=== PATIENT | female | born 1985 | race Caucasian/White ===

== ENCOUNTER 2020-07-11 12:29 | Outpatient (REF) | payer OTHER, SELFPAY ==
[2020-07-11 13:09] LABS: COVID-19 Test Negative (Negative)
== END 2020-07-11 12:30 | disposition home or self-care (01) ==
LOC: HO.EMPCOV 12:29
PROVIDERS: PCP Family Medicine; Visit Provider Internal Medicine
DX: Z20.828 Contact with and (suspected) exposure to other viral communicable diseases (principal)
CPT/HCPCS: 87635; C9803

== ENCOUNTER 2021-07-29 06:15 | Outpatient (REF) | payer OTHER, SELFPAY | END 2021-07-29 06:16 | disposition home or self-care (01) | LOC: HO.EMPCOV 06:15 | PROVIDERS: Visit Provider Internal Medicine | DX: Z20.822 Contact with and (suspected) exposure to COVID-19 (principal) | CPT/HCPCS: C9803; U0003; U0005 ==

== ENCOUNTER 2021-08-05 11:57 | Outpatient (REF) | payer OTHER, SELFPAY ==
[2021-08-05 12:55] LABS: Influenza A PCR NEGATIVE (Negative); Influenza B PCR NEGATIVE (Negative); Resp Syncy Virus RNA Qual PCR NEGATIVE (Negative); SARS COV2 PCR INHOUSE NEGATIVE (Negative)
== END 2021-08-05 11:58 | disposition home or self-care (01) ==
LOC: HO.LNP 11:57
PROVIDERS: Visit Provider Hospitalist
DX: Z20.822 Contact with and (suspected) exposure to COVID-19 (principal)
CPT/HCPCS: 0241U

== ENCOUNTER → 2022-05-22 11:48 | Outpatient (RCR) | payer OTHER, SELFPAY ==
[2020-06-14 07:20] LABS: COVID-19 Test Negative (Negative)
[2020-06-18 08:08] LABS: COVID-19 Test Negative (Negative); IDNOW Serial# 55D5AD1C
[2020-06-25 07:24] LABS: COVID-19 Test Negative (Negative); IDNOW Serial# 55D5AD1C
[2020-07-02 07:36] LABS: COVID-19 Test Negative (Negative)
[2020-07-19 09:58] LABS: SARS-COV-2 PCR UMBRL Not Detected
[2020-07-25 11:52] LABS: SARS-COV-2 PCR UMBRL Not Detected
[2020-08-01 08:13] LABS: SARS-COV-2 PCR UMBRL Not Detected
[2020-08-06 08:48] LABS: COVID-19 Test Negative (Negative); IDNOW Serial# 55D5AD1C
[2020-08-16 13:22] LABS: SARS-COV-2 PCR UMBRL Not Detected
[2020-08-21 15:22] LABS: SARS-COV-2 PCR UMBRL NEGATIVE
== END | disposition home or self-care (01) ==
LOC: HO.EMPCOV 06-14 06:59
PROVIDERS: Visit Provider Internal Medicine
DX: Z20.828 Contact with and (suspected) exposure to other viral communicable diseases (principal)
CPT/HCPCS: 36415; 87635; C9803; U0003